=== PATIENT | male | born 1940 | race Caucasian/White ===

== ENCOUNTER 2016-02-26 06:40 | Day surgery (SDC) | payer OTHER ==
[2016-02-22 16:23] LABS: MANUAL DIFF NEEDED? NO
[2016-02-22 16:33] LABS: BASO% 0.5 % (0.0-0.8); EOS% 2.5 % (0.0-10.0); HEMATOCRIT 39.1 % (42.0-52.0); HEMOGLOBIN 13.3 g/dL (14.0-18.0); IMM GRAN# 0.03 X1000 (0.0-0.04); IMM GRAN% 0.4 % (0.0-0.5); LYMPH# 2.45 X1000 (1.2-3.4); LYMPH% 30.8 % (20.5-51.1); MCH 30.7 PG (27-31); MCV 90.3 FL (81-99); MONO% 7.5 % (1.7-9.3); NEUT% 58.3 % (42.2-75.2); PLT 307 X1000 (130-400); RBC 4.33 XMIL (4.7-6.1)
[2016-02-22 16:36] LABS: INR 1.01; PROTIME 10.7 Seconds (9.2-11.7)
[2016-02-22 16:56] LABS: ALBUMIN 4.4 g/dL (3.5-5.0); CALCIUM 9.4 mg/dL (8.8-10.2); POTASSIUM 3.9 mmol/L (3.5-5.1); TOTAL BILIRUBIN 0.67 mg/dL (0.20-1.00); TOTAL PROTEIN 7.1 g/dL (6.3-8.3)
[2016-02-26] MEDS ORDERED: NS 1,000 ML ONE ×2 (07:00→08:41)
--- NOTE | 2016-02-26 07:35 | EKG Report ---
Test Performed on : 02/26/2016 07:11:40 AM Test Reason : L-CATH Blood Pressure : / mmHG Vent. Rate : 070 BPM Atrial Rate : 070 BPM P-R Int : 166 ms QRS Dur : 084 ms QT Int : 466 ms P-R-T Axes : 043 002 012 degrees QTc Int : 503 ms Normal sinus rhythm. Low voltage QRS Nonspecific T wave abnormality Abnormal ECG No previous ECGs available Confirmed by Sánchez Valadez DO ([id number]) on 02/27/2016 7:29:35 PM
[2016-02-26] MEDS ORDERED: NITROGLYCERIN ONE (08:13)
[2016-02-26] MEDS ORDERED: HEPARIN 1000 UNITS/NS 1,000 ML ONE (08:15)
[2016-02-26] MEDS ORDERED: DEMEROL ONE (08:42)
[2016-02-26] MEDS ORDERED: VERSED ONE (08:42)
--- NOTE | 2016-02-26 11:12 | CARDIAC CATH REPORT ---
DATE: 02/26/2016 PROCEDURES PERFORMED: 1. Left heart catheterization. 2. Aortic Root injection. 3. Selective coronary arteriography. 4. Left ventriculogram. HISTORY: This is a 76-year-old male who presented to my office with complaints of shortness of breath. He had a history of hypertension and diabetes mellitus. In 12/2015, he received a stress test that showed abnormal findings with a moderate size, moderate to severe intensity defect in the inferior apical and apical anterior segments. Because of his abnormal findings, we recommended to pursue a left heart catheterization. The benefits, risks and complications of the procedure were explained. He understood and requested to proceed. This was discussed with him on office visit dated 02/13/2016. DESCRIPTION OF PROCEDURE: The patient came into the cardiac aquatic life laborer in a fasting state. The right antecubital fossa was prepped and draped in sterile fashion. The patient received 2 mg of Versed and 25 mg of Demerol for sedation. The antecubital fossa was infiltrated with lidocaine 1%. A 5-Irish sheath was inserted. Then using Sones 2, 5-Irish, type 2 catheter, the aortic valve was negotiated. Left ventricular pressure was determined. Left ventriculogram was performed in the 30 degree FLORES projection by hand injection and also in the 60 degree [place] projection by hand injection. Then the right coronary artery was selectively opacified in multiple projections. Aortic Root was opacified by hand injection.Left coronary artery was difficult to engage with Sones catheter. Thereafter using a 5-Irish left Dwight 4 diagnostic catheter, the left coronary artery was opacified. During the procedure, the patient received at least 3 doses of intraarterial nitroglycerin. At the end of the procedure, all of the catheters were removed and the sheath was flushed. The sheath was removed, and hemostasis was accomplished by hand compression. The right radial pulse was 4+. The patient tolerated the procedure well without any obvious complication. SUMMARY OF HEMODYNAMIC FINDINGS: Central aortic pressure was initially 87/59. Left ventricular pressure was 103/17, post LV gram 109/21. Final central aortic pressure was 92/ 55. SUMMARY OF ANGIOGRAPHIC FINDINGS: 1. Left main coronary artery: This vessels appears to be anatomically normal. There may be a 10% proximal plaque which is only seen in one of the views. No critical stenosis identified. Left main divides into LAD and circumflex. 2. Left anterior descending coronary artery: This vessel appears to become occluded after giving rise to a couple of diagonal branches. The major diagonal branch appears to be free of any critical disease. There is a secondary diagonal branch that appears to be free of any major obstruction. The LAD proper is completely occluded and fills through collaterals coming from the right side. 3. Circumflex coronary artery: The circumflex coronary artery is a nondominant vessel. It gives rise to basically 2 branches. The major branch is a posterolateral vessel that is at least 2 mm in caliber. This vessel displays an 80% proximal stenosis. The terminal AV branch of the circumflex is very small and free of any significant obstruction.There is also a suggestion of a chronically occluded branch of the circumflex system more proximal to the described severely stenosed posterolateral vessel. 4. Right coronary artery: The right coronary artery is a large dominant vessel. Proximally it gives rise to sinus jordy branch and conus branch. After giving rise to the acute marginal branch, the right coronary artery shows significant diffuse 70% stenosis. This involves several centimeters of the length of the vessel. Distally the right coronary artery gives rise to a posterior descending branch and a posterolateral vessel. The posterior descending branch appears to be an adequate target for bypass grafting. Also the posterolateral branch appears to be an adequate target. 5. Collateral circulation: There is extensive collateral circulation coming from the acute marginal branch of the right coronary artery supplying the distal LAD which fills very nicely in its entire distal third. I believe the distal LAD is suitable for bypass grafting. AORTIC ROOT INJECTION: No evidence of significant aortic regurgitation nor dilatation of the root. LEFT VENTRICULOGRAM: Left ventriculogram in the 30 degree FLORES projection and 60 degree [place]AN projection reveals overall preserved ejection fraction estimated at 55%. The apex appears to be slightly hypokinetic. No mitral regurgitation was noted. CONCLUSIONS: 1. Severe 3-vessel coronary artery disease. There is complete occlusion of LAD after origin of major diagonal branch. There is also severe long, diffuse disease involving the mid to right coronary artery. There is an 80% stenosis at the ostium of a major posterolateral circumflex branch. 2. Preserved global left ventricular systolic function with trivial hypokinesis of the apical portion of left ventricle. Ejection fraction is 55% to 60%. 3. Borderline elevated LVEDP in the range of 17 to 21. 4. No aortic stenosis. No mitral regurgitation. 5. No significant aortic regurgitation nor dilatation of the root. RECOMMENDATIONS: In my opinion, the patient has 2 well-defined targets for bypass grafting, specifically the posterior descending branch of the right coronary artery and the posterolateral branch of the circumflex system. I believe the apical LAD could be grafted. The patient at this point in time will be observed in the hospital, and he will be referred for elective opinion from cardiovascular surgical attendant as an outpatient. At this point in time, we are going to continue his present medical therapy as instructed, and further intervention will depend on the clinical course of the patient and the opinion of the surgical attendant. [id number]
[2016-02-26 16:47] VITALS: BP 138/78
== END 2016-02-26 15:30 | disposition home or self-care (01) ==
LOC: OPS 06:40
PROVIDERS: ATTEND Internal Medicine Cardiovascular Disease
DX: I25.10 Atherosclerotic heart disease of native coronary artery without angina pectoris (principal); I25.82 Chronic total occlusion of coronary artery; R94.39 Abnormal result of other cardiovascular function study; E11.9 Type 2 diabetes mellitus without complications; E78.00 Pure hypercholesterolemia, unspecified; I10 Essential (primary) hypertension; R06.02 Shortness of breath; Z79.899 Other long term (current) drug therapy; Z79.84 Long term (current) use of oral hypoglycemic drugs; Z79.82 Long term (current) use of aspirin
CPT/HCPCS: 80053; 82948; 85025; 85610; 85730; 93005; 93010; 93458; 93567; J1644; J2175; J2250; J7030; Q9967